=== PATIENT | female | born 1970 | race Caucasian/White ===

== ENCOUNTER 2021-02-16 11:48 | Emergency (ER) | payer MEDICAID ==
[~2021-02-16] VITALS: Ht 149.9 cm; Wt 59.0 kg
[2021-02-16] MEDS ORDERED: VRAYLAR3 MG PO (12:05)
[2021-02-16] MEDS ORDERED: LEVO-T75 MCG PO (12:05)
[2021-02-16] MEDS ORDERED: BIKTARVY 50-201 EACH PO (12:05)
[2021-02-16 13:36] VITALS: BP 103/70
[2021-02-17] MEDS ORDERED: IBUPROFEN 600600 M1 PO (12:30)
[2021-02-17] MEDS ORDERED: HYDROCODON-ACE1 EAC7 PO ×3 (12:30→14:14)
== END 2021-02-16 13:25 | disposition left against medical advice (07) ==
LOC: M.ERS 11:48
DX: M25.572 Pain in left ankle and joints of left foot (principal); Z53.21 Procedure and treatment not carried out due to patient leaving prior to being seen by health care provider

== ENCOUNTER 2021-02-17 10:05 | Emergency (ER) | payer MEDICAID ==
[~2021-02-17] VITALS: Ht 149.9 cm; Wt 59.0 kg
[~2021-02-17 10:05] MED LIST: BIKTARVY 50-201 EACH PO; LEVO-T75 MCG PO; VRAYLAR3 MG PO
[2021-02-17] MEDS ORDERED: HYDROCODON-ACE1 EAC7 PO ×3 (12:30→14:14)
[2021-02-17] MEDS ORDERED: IBUPROFEN 600600 M1 PO (12:30)
[2021-02-17 12:43] VITALS: BP 109/74
== END 2021-02-17 12:44 | disposition home or self-care (01) ==
LOC: M.ERS 10:05
DX: S92.252A Displaced fracture of navicular [scaphoid] of left foot, initial encounter for closed fracture (principal); Z21 Asymptomatic human immunodeficiency virus [HIV] infection status; Z79.899 Other long term (current) drug therapy; W18.31XA Fall on same level due to stepping on an object, initial encounter; Y93.89 Activity, other specified; Y92.89 Other specified places as the place of occurrence of the external cause; Y99.8 Other external cause status